=== PATIENT | female | born 1995 | race Two or more races ===

== ENCOUNTER 2021-01-06 08:20 | Outpatient (CLI) | payer OTHER | END 2021-01-06 08:21 | disposition home or self-care (01) | LOC: TBSIIMAG 08:20 | PROVIDERS: ATTEND Family Medicine | DX: M51.16 Intervertebral disc disorders with radiculopathy, lumbar region (principal); G89.4 Chronic pain syndrome; M51.27 Other intervertebral disc displacement, lumbosacral region; M51.24 Other intervertebral disc displacement, thoracic region; M51.25 Other intervertebral disc displacement, thoracolumbar region | CPT/HCPCS: 72100; 72148 ==